=== PATIENT | male | born 1940 | race Caucasian/White ===

== ENCOUNTER 2017-02-16 14:22 | Outpatient (CLI) | payer MEDICARE, OTHER ==
[2017-02-16 14:58] LABS: eGFR (African) > 60; eGFR (Non-African) 57
--- NOTE | 2017-02-16 15:26 | Diagnostic Imaging Report ---
EHSAN MELENDEZ [facility] [address] [id number] Report Submission Date: Feb 16, 2017 3:12:56 PM CDT Patient Study Name: JUJU ZIMMER Date: Feb 16, 2017 2:30:04 PM CDT Modality Type: CR Gender: M Description: CHEST : 42 Institution: [facility] Physician: EHSAN MELENDEZ Examination: PA and lateral chest. History: Evaluate lung uriarte. Findings: PA lateral chest demonstrate a normal cardiac silhouette. Mild tortuosity of the thoracic aorta. Scattered pulmonary granuloma. Chronic appearing interstitial changes. No focal infiltrate. No effusion. No blunting of the costophrenic margins. Osseous structures are appropriate for age. Impression: Chronic appearing interstitial changes and pulmonary granuloma. No acute pulmonary process. Correlate with older exams if become available. Electronically signed on Feb 16, 2017 3:12:56 PM CDT by: Nathaniel SEGURA
== END 2017-02-16 14:23 ==
LOC: LAB 14:22
PROVIDERS: ATTEND Family Medicine
DX: R60.0 Localized edema (principal); I10 Essential (primary) hypertension; R06.02 Shortness of breath
CPT/HCPCS: 36415; 71020; 80053; 80061; 83880

== ENCOUNTER 2018-06-22 13:13 | Outpatient (CLI) | payer MEDICARE, OTHER ==
[2018-06-22 14:10] LABS: BASOPHILS % 0.2 (0.0-1.5); MEAN CORPUSCULAR HEMOGLOBIN 31.7 pg (28.0-34.0); MONOCYTES % 5.4 % (0.0-11.0); NEUTROPHILS # 6.4 # k/uL (1.4-7.7)
[2018-06-22 15:09] LABS: eGFR (Non-African) 33
--- NOTE | 2018-06-23 03:45 | Diagnostic Imaging Report ---
EHSAN MELENDEZ [facility] [address] [facility] [address] [place], [place]. [address] Report Submission Date: Jun 22, 2018 3:27:30 PM [employer] Patient Study Name: JUJU ZIMMER Date: Jun 22, 2018 2:28:05 PM [employer] Modality Type: CT\SR Gender: M Description: CT ABD PELVIS W/O CO : 42 Institution: [facility] Physician: EHSAN MELENDEZ CT abdomen and pelvis without contrast History: Epigastric pain. Mid abdominal pain for several years Technique: Helically acquired images were obtained from the hemidiaphragms to the pelvic floor without IV or oral contrast. Findings: Calcified hilar nodes are present. Heart size is normal. There is no pericardial or pleural effusion. There is old granulomatous disease of the normal-sized spleen. Scattered calcified granulomata are present at the lung bases. On these images without IV contrast, which limits solid organ evaluation, the liver, gallbladder, and pancreas appear normal. There is perinephric fat stranding bilaterally consistent either with chronic inflammation or senescence. No focal hepatic masses or intrarenal stones are noted. There is no hydronephrosis. There are no ureteral stones. There is lobulated, low- attenuation, generalized enlargement of both adrenal glands consistent with adenomatous involvement of the bilateral adrenal glands. Small and large bowel loops are normal in caliber. There is aortoiliac atherosclerosis without aneurysm. The bladder is decompressed. The prostate gland is abnormally enlarged measuring approximately 5.4 x 6.0 cm in greatest dimension and impresses upon the base of the bladder. Impression: Old granulomatous disease. Adenomatous enlargement of both adrenal glands. Bilateral perinephric fat stranding consistent either with chronic inflammation or senescence. Aortoiliac atherosclerosis without aneurysm. Enlarged prostate gland. Not mentioned above, degenerative disc disease is present with vacuum disc phenomenon at multiple levels of the lower thoracic and lumbar spine. Electronically signed on Jun 22, 2018 3:27:30 PM [employer] by: Tea SEGURA
== END 2018-06-22 13:14 ==
LOC: RAD 13:13
PROVIDERS: ATTEND Family Medicine
DX: R10.84 Generalized abdominal pain (principal); R10.13 Epigastric pain; E27.8 Other specified disorders of adrenal gland; I70.0 Atherosclerosis of aorta; I72.3 Aneurysm of iliac artery; N40.0 Benign prostatic hyperplasia without lower urinary tract symptoms
CPT/HCPCS: 36415; 74176; 80053; 83690; 85025

== ENCOUNTER 2018-07-07 15:52 | Outpatient (CLI) | payer MEDICARE, OTHER ==
[2018-07-07 16:57] LABS: eGFR (Non-African) 37
== END 2018-07-07 15:53 ==
LOC: LAB 15:52
PROVIDERS: ATTEND Family Medicine
DX: E87.5 Hyperkalemia (principal)
CPT/HCPCS: 36415; 80048

== ENCOUNTER 2018-10-18 14:24 | Inpatient (IN) | payer MEDICARE, OTHER ==
[2018-10-18 14:59] VITALS: BMI 38.4
[2018-10-18] MEDS ORDERED: ACETAMINOPHEN 500 MG TABLET PO PRN (15:19)
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
[2018-10-18 15:27] LABS: MEAN CORPUSCULAR HEMOGLOBIN 30.4 pg (28.0-34.0)
[2018-10-18 15:28] LABS: BASOPHILS % 0.3 (0.0-1.5); EOSINOPHILS % 2.3 % (0.0-6.8); MONOCYTES % 4.6 % (0.0-11.0); NEUTROPHILS # 6.7 # k/uL (1.4-7.7)
[2018-10-18] MEDS: 0.45% SODIUM CHLORIDE 1,000 ML IV SCH (16:33)
[2018-10-18] MEDS: LISINOPRIL 10 MG TABLET PO SCH (16:53)
[2018-10-18] MEDS: hydroCHLOROthiazide 25 MG TABLET PO SCH (16:53)
[2018-10-18] MEDS: metOLazone 2.5 MG TABLET PO SCH (16:53)
[2018-10-18] MEDS: SPIRONOLACTONE 25 MG TABLET PO SCH (16:53)
[2018-10-18] MEDS: FUROSEMIDE 40 MG TABLET PO SCH (16:53)
[2018-10-18] MEDS: PANTOPRAZOLE SODIUM 80 MG in 0.9 % SODIUM CHLORIDE 50 ML IV SCH (16:54)
[2018-10-18 21:49] LABS: MEAN CORPUSCULAR HEMOGLOBIN 30.5 pg (28.0-34.0)
[2018-10-18 21:50] LABS: BASOPHILS % 0.4 (0.0-1.5); EOSINOPHILS % 3.5 % (0.0-6.8); MONOCYTES % 5.4 % (0.0-11.0); NEUTROPHILS # 5.7 # k/uL (1.4-7.7)
[2018-10-19] MEDS: 0.45% SODIUM CHLORIDE 1,000 ML IV SCH (06:04)
[2018-10-19] MEDS: PANTOPRAZOLE SODIUM 80 MG in 0.9 % SODIUM CHLORIDE 50 ML IV SCH (06:33)
[2018-10-19] MEDS: FUROSEMIDE 40 MG TABLET PO SCH (06:33)
[2018-10-19 07:44] LABS: BASOPHILS % 0.3 (0.0-1.5); EOSINOPHILS % 3.8 % (0.0-6.8); MEAN CORPUSCULAR HEMOGLOBIN 30.4 pg (28.0-34.0); MONOCYTES % 4.3 % (0.0-11.0); NEUTROPHILS # 5.1 # k/uL (1.4-7.7)
[2018-10-19] MEDS: SPIRONOLACTONE 25 MG TABLET PO SCH (10:35)
[2018-10-19] MEDS: LISINOPRIL 10 MG TABLET PO SCH (10:35)
[2018-10-19] MEDS: hydroCHLOROthiazide 25 MG TABLET PO SCH (10:35)
[2018-10-19] MEDS: metOLazone 2.5 MG TABLET PO SCH (10:36)
[2018-10-19 13:43] VITALS: BP 125/69
--- NOTE | 2018-12-11 09:21 | Discharge Summary ---
Discharge Summary - Discharge [facility] Admission Date: 10/18/18 (Acute care) Discharge Date: 10/19/18 (Home) Discharge To: Home History of Present Illness: 78-year-old male with a four day history of melodramatic stools. Patient stated he has been having 1 to 2 bowel movements a day however is not had any over the last 24 hours. Patient does complain of some mild discomfort to the mid abdominal area. Patient has never had a colonoscopy done. Patient had not had any previous peptic ulcer a gastritis. Patient has not noted any orthostatic symptoms at this time. Patient is taking nonsteroidal anti-inflammatory medications on a regular basis for with arthritis. Patient was seen in the clinic where he had a rectal exam done which showed grossly no a lot of dual that was markedly guiac positive for blood. Because of the longevity of the history of melodramatic stools and mild tachycardia patient was admitted to the hospital for further evaluation and treatment. Condition at Discharge: Stable Home Medications: Ambulatory Orders Medication Instructions Recorded Acetaminophen [Tylenol Extra 500 mg PO Q4H PRN #100 tablet 10/19/18 Strength] Allergies/Adverse Reactions: Allergies Allergy/AdvReac Type Severity Reaction Status Date / Time No Known Drug Allergies Allergy Verified 10/18/18 20:57 Discharge Summary: Patient did not have any further evidence of GI bleeding after admission. Hgb and Hct remained stable. Last Hgb 8.1. Patient was not having any orthostatic symptoms. Appetite remained good. It was felt that the patient could be followed on an outpatient status and was discharged home in stable condition. - Final Diagnosis (1) GI bleed due to NSAIDs Problems: stable (2) Pedal edema Problems: stable (3) Osteoarthritis of knees, bilateral Problems: stable
== END 2018-10-19 13:30 | disposition home or self-care (01) | DRG 379 ==
LOC: SOUTH 14:24
PROVIDERS: ADMIT Family Medicine; ATTEND Family Medicine
DX: K92.1 Melena (principal); R00.0 Tachycardia, unspecified; E66.01 Morbid (severe) obesity due to excess calories; R60.9 Edema, unspecified; Z79.1 Long term (current) use of non-steroidal anti-inflammatories (NSAID); Z68.39 Body mass index [BMI] 39.0-39.9, adult
CPT/HCPCS: 80048; 80053; 85025; 85610; 99223; 99238; S1016

== ENCOUNTER 2018-10-26 15:30 | Outpatient (CLI) | payer MEDICARE, OTHER ==
[2018-10-26 17:34] LABS: eGFR (Non-African) 34
== END 2018-10-26 15:33 ==
LOC: LABRHC 15:30
PROVIDERS: ATTEND Family Medicine
DX: K92.2 Gastrointestinal hemorrhage, unspecified (principal)
CPT/HCPCS: 36415; 80053; 83540; 85027